=== PATIENT | female | born 1995 | race Caucasian/White ===

== ENCOUNTER → 2018-04-28 16:54 | Observation (INO) ==
[2018-04-28 14:17] LABS: Bilirubin,Urine Negative (Negative); Blood,Urine Negative (Negative); Clarity,Urine Clear (Clear); Color,Urine Yellow (Yellow); Glucose,Urine (UA) Normal (Normal); Ketones,Urine 80 mg/dL (Negative); Leukocyte Esterase,Urine Small (Negative); Nitrite,Urine Negative (Negative); Protein,Urine Negative (Neg-Trace); Specific Gravity,Urine 1.019 (1.010-1.025); Urobilinogen,Urine Normal (Normal)
[2018-04-28 14:22] LABS: Bacteria,Urine None Seen per hpf (None-Few); Hyaline Casts,Urine None Seen per lpf (None-Few); Squamous Epithelial Cell,Urine Many per lpf (None-Few); WBC,Urine 0-3 per hpf (0-3)
[2018-04-28 14:25] LABS: Amphetamine Screen,Urine Negative ng/mL (Cutoff=1000); Barbiturate Screen,Urine Negative ng/mL (Cutoff=200); Benzodiazepines Screen,Urine Negative ng/mL (Cutoff=200); Cannabinoid Screen,Urine Negative ng/mL (Cutoff = 50); Cocaine Screen,Urine Negative ng/mL (Cutoff= 300); Opiate Screen,Urine Negative ng/mL (Cutoff=300); Phencyclidine Screen,Urine Negative ng/mL (Cutoff=25)
--- NOTE | 2018-04-28 14:53 | OB/GYN Progress Note ---
Date of Encounter: 04/28/18 Time of Encounter: 14:47 - Assessment and Plan (1) 30 weeks gestation of Current Visit: Yes Status: Acute admitted for observation (2) uterine contractions in third trimester, antepartum Current Visit: Yes Status: Acute PO hydration (3) Vaginal bleeding Current Visit: Yes Status: Acute Speculum exam SVE Dr. Arguello updated on patients status and POC Subjective - Subjective Principal diagnosis: contractions and vaginal spotting Interval history: Patient is a 22 y/o presents to labor and delivery with complaints of cramping for over a week and today noticed some spotting when she wiped after using the restroom. Patient denies any LOF. Patient reports +FM. Patient states that Dr. Duarte checked her for the same complaint on 04/23/18 and she was not dilated. Patient denies any urinary symptoms, vaginal discharge, itching or burning. Patient states she was recently treated for a UTI and did finish her coarse of treatment. Antepartum ROS: vaginal bleeding (per HPI), movement normal, contractions (irregular), no loss of fluid Objective - Vital Signs Vital Signs: Intake and Output 04/27/18 04/28/18 04/28/18 23:59 07:59 15:59 Other: Weight 85.684 kg Patient Weight 04/28/18 23:59 Weight 85.684 kg - Exam FHR: auscultation normal, category 1 FHR comments: 145 bpm moderate variability +15x15 accels no decels noted. Cat. 1 tracing No contractions noted Auscultation: bilateral: normal Abdomen: Present: normal appearance, soft, gravid Cervical dilation: 1 Cervix effacement: 25 station: -3 Comments: Speculum exam: scant amount of red mucus discharge with moderate amount of beige colored discharge. No active bleeding noted. Vaginosis panel collected. - Labs Labs: Abnormal lab results Urine Ketones 80 mg/dL (Negative) H 04/28/18 14:05 Ur Leukocyte Esterase Small (Negative) H 04/28/18 14:05 Urine Microscopic RBC 3-5 per hpf (0-3) H 04/28/18 14:05 Ur Squamous Epith Cells Many per lpf (None-Few) H 04/28/18 14:05 Ur Culture Indicated? NO. (NO) A 04/28/18 14:05
[2018-04-28 15:10] LABS: Basophils % 0.2 %; Eosinophils # 0.1 K/mcL (0.0-0.6); Eosinophils % 0.7 %; Hematocrit 33.5 % (35.3-44.9); Hemoglobin 10.5 g/dL (11.5-15.4); Immature Granulocytes % 0.6 % (0-4); Lymphocytes # 1.4 K/mcL (0.6-4.6); Mean Corpuscular HGB Conc 31.3 g/dL (31.6-35.5); Mean Corpuscular Hemoglobin 25.4 pg (28.0-33.3); Mean Corpuscular Volume 80.9 fL (83.0-100.0); Mean Platelet Volume 10.6 fL (9.4-12.4); Monocytes # 0.6 K/mcL (0.0-1.3); Monocytes % 6.4 %; Platelet Count 207 K/mcL (140-400); Red Blood Count 4.14 M/mcL (3.82-4.97); Red Cell Distribution Width 13.5 % (11.5-14.5); Segmented Neutrophils % 77.1 %
[2018-04-28 15:21] LABS: Protein/Creatinine Ratio,Urine 0.14 mg/mg (0.00-0.20)
[2018-04-28 15:29] LABS: Trichomonas DNA Not Detected (Not Detect)
[2018-04-28 15:30] LABS: Candida DNA Not Detected (Not Detect); Gardnerella DNA Not Detected (Not Detect)
[2018-04-28 15:32] LABS: Alanine Aminotransferase 8 Units/L (7-52); Aspartate Amino Transferase 11 Units/L (13-39); BUN/Creatinine Ratio 10 (6-26); Blood Urea Nitrogen 5 mg/dL (6-20); Lactate Dehydrogenase 95 Units/L (140-271); Uric Acid 3.2 mg/dL (2.3-7.6); eGFR For Non-African Americans > 60 (> 60)
[~2018-04-28 16:54] MED LIST: Betamethasone Acet/SodPhos 6 MG/ML MDV IM SCH
--- NOTE | 2018-04-28 16:55 | Discharge Summary ---
Date of Encounter: 04/28/18 Time of Encounter: 16:54 - Discharge Diagnosis (1) 30 weeks gestation of Priority: Primary Status: Acute (2) uterine contractions in third trimester, antepartum Priority: Secondary Status: Acute Comments: No cervical change Discussed patient with Dr. Arguello will discharge home to follow up with Dr. Duarte tomorrow (3) Vaginal bleeding Priority: Secondary Status: Acute - Discharge Medications Home Medications: Ondansetron ODT [Zofran ODT] 4 mg SL Q6HR PRN #8 tab.rapdis 06/09/17 [Rx] Tablet 04/28/18 [History] Allergies/Adverse Reactions: Allergy/AdvReac Type Severity Reaction Status Date / Time Oxycodone AdvReac See Verified 07/19/16 11:07 Comments Data Procedures and tests throughout hospitalization: Laboratory Tests 04/28/18 04/28/18 04/28/18 14:05 14:05 14:05 WBC RBC Hgb Hct MCV MCH MCHC RDW Plt Count MPV Immature Gran % Seg Neutrophils % Lymphocytes % Monocytes % Eosinophils % Basophils % Neutrophils # Lymphocytes # Monocytes # Eosinophils # Basophils # BUN Creatinine Est GFR ( Amer) Est GFR (Non-Af Amer) BUN/Creatinine Ratio Uric Acid AST ALT Lactate Dehydrogenase Urine Color Yellow Urine Clarity Clear Urine pH 6.0 Ur Specific [place] 1.019 Urine Protein Negative Urine Glucose (UA) Normal Urine Ketones 80 H Urine Blood Negative Urine Nitrite Negative Urine Bilirubin Negative Urine Urobilinogen Normal Ur Leukocyte Esterase Small H Urine Microscopic RBC 3-5 H Urine Microscopic WBC 0-3 Ur Squamous Epith Cells Many H Urine Bacteria None Seen Hyaline Casts None Seen Ur Culture Indicated? NO. A Urine Creatinine 155 Protein/Creatinin Ratio 0.14 Urine Total Protein 21 H Urine Opiates Screen Negative Ur Barbiturates Screen Negative Ur Phencyclidine Scrn Negative Ur Amphetamines Screen Negative U Benzodiazepines Scrn Negative Urine Cocaine Screen Negative U Marijuana (THC) Screen Negative Ur Drug Screen Interp See Below Treasure species DNA Gardnerella DNA Probe Trichomonas DNA Probe 04/28/18 04/28/18 04/28/18 14:39 14:55 14:55 WBC 9.1 RBC 4.14 Hgb 10.5 L Hct 33.5 L MCV 80.9 L MCH 25.4 L MCHC 31.3 L RDW 13.5 Plt Count 207 MPV 10.6 Immature Gran % 0.6 Seg Neutrophils % 77.1 Lymphocytes % 15.0 Monocytes % 6.4 Eosinophils % 0.7 Basophils % 0.2 Neutrophils # 7.0 Lymphocytes # 1.4 Monocytes # 0.6 Eosinophils # 0.1 Basophils # 0.0 BUN 5 L Creatinine 0.50 L Est GFR ( Amer) > 60 Est GFR (Non-Af Amer) > 60 BUN/Creatinine Ratio 10 Uric Acid 3.2 AST 11 L ALT 8 Lactate Dehydrogenase 95 L Urine Color Urine Clarity Urine pH Ur Specific [place] Urine Protein Urine Glucose (UA) Urine Ketones Urine Blood Urine Nitrite Urine Bilirubin Urine Urobilinogen Ur Leukocyte Esterase Urine Microscopic RBC Urine Microscopic WBC Ur Squamous Epith Cells Urine Bacteria Hyaline Casts Ur Culture Indicated? Urine Creatinine Protein/Creatinin Ratio Urine Total Protein Urine Opiates Screen Ur Barbiturates Screen Ur Phencyclidine Scrn Ur Amphetamines Screen U Benzodiazepines Scrn Urine Cocaine Screen U Marijuana (THC) Screen Ur Drug Screen Interp Treasure species DNA Not Detected Gardnerella DNA Probe Not Detected Trichomonas DNA Probe Not Detected Labs on day of discharge: Labs from last 24 hours 04/28/18 04/28/18 04/28/18 14:55 14:55 14:39 WBC 9.1 RBC 4.14 Hgb 10.5 L Hct 33.5 L MCV 80.9 L MCH 25.4 L MCHC 31.3 L RDW 13.5 Plt Count 207 MPV 10.6 Immature Gran % 0.6 Seg Neutrophils % 77.1 Lymphocytes % 15.0 Monocytes % 6.4 Eosinophils % 0.7 Basophils % 0.2 Neutrophils # 7.0 Lymphocytes # 1.4 Monocytes # 0.6 Eosinophils # 0.1 Basophils # 0.0 BUN 5 L Creatinine 0.50 L Est GFR ( Amer) > 60 Est GFR (Non-Af Amer) > 60 BUN/Creatinine Ratio 10 Uric Acid 3.2 AST 11 L ALT 8 Lactate Dehydrogenase 95 L Urine Color Urine Clarity Urine pH Ur Specific [place] Urine Protein Urine Glucose (UA) Urine Ketones Urine Blood Urine Nitrite Urine Bilirubin Urine Urobilinogen Ur Leukocyte Esterase Urine Microscopic RBC Urine Microscopic WBC Ur Squamous Epith Cells Urine Bacteria Hyaline Casts Ur Culture Indicated? Urine Creatinine Protein/Creatinin Ratio Urine Total Protein Urine Opiates Screen Ur Barbiturates Screen Ur Phencyclidine Scrn Ur Amphetamines Screen U Benzodiazepines Scrn Urine Cocaine Screen U Marijuana (THC) Screen Ur Drug Screen Interp Treasure species DNA Not Detected Gardnerella DNA Probe Not Detected Trichomonas DNA Probe Not Detected 04/28/18 04/28/18 04/28/18 14:05 14:05 14:05 WBC RBC Hgb Hct MCV MCH MCHC RDW Plt Count MPV Immature Gran % Seg Neutrophils % Lymphocytes % Monocytes % Eosinophils % Basophils % Neutrophils # Lymphocytes # Monocytes # Eosinophils # Basophils # BUN Creatinine Est GFR ( Amer) Est GFR (Non-Af Amer) BUN/Creatinine Ratio Uric Acid AST ALT Lactate Dehydrogenase Urine Color Yellow Urine Clarity Clear Urine pH 6.0 Ur Specific [place] 1.019 Urine Protein Negative Urine Glucose (UA) Normal Urine Ketones 80 H Urine Blood Negative Urine Nitrite Negative Urine Bilirubin Negative Urine Urobilinogen Normal Ur Leukocyte Esterase Small H Urine Microscopic RBC 3-5 H Urine Microscopic WBC 0-3 Ur Squamous Epith Cells Many H Urine Bacteria None Seen Hyaline Casts None Seen Ur Culture Indicated? NO. A Urine Creatinine 155 Protein/Creatinin Ratio 0.14 Urine Total Protein 21 H Urine Opiates Screen Negative Ur Barbiturates Screen Negative Ur Phencyclidine Scrn Negative Ur Amphetamines Screen Negative U Benzodiazepines Scrn Negative Urine Cocaine Screen Negative U Marijuana (THC) Screen Negative Ur Drug Screen Interp See Below Treasure species DNA Gardnerella DNA Probe Trichomonas DNA Probe Date of admission: 04/28/18 13:56 Discharging clinician: Aimee Pfeiffer Anticipated date of discharge: 04/28/18 - Patient Status Disposition: Home, Self-Care Condition: Good Functional capacity at discharge: independent ambulation - Discharge Instructions Follow Up With: Adiel Duarte MD [Partnered Physician] - - Diet and Activity Activity: increase activity as tolerated Diet: regular diet Hospital Course ACCOUNT SUPPORT ASSOCIATE Time Attestation: Total time spent providing and/or coordinating discharge services: Time Spent: Less than 30 minutes Exam - Constitutional General appearance IM: A&O X 3, pleasant, answers questions appropriately - Other Additional findings: SVE no cervical change Patient to follow up with Dr. Duarte tomorrow for second betamethasone injection - VTE Reasons for not Prescribing Prophylaxis: Treatment not Indicated - Low risk for VTE
== END | disposition home or self-care (01) ==
LOC: 1NENULAB
PROVIDERS: ADMIT Student in an Organized Health Care Education/Training Program; ATTEND Student in an Organized Health Care Education/Training Program

== ENCOUNTER 2018-06-28 08:00 | Inpatient (IN) ==
--- NOTE | 2018-06-28 10:26 | OB/GYN History & Physical ---
Date of Encounter: 06/28/18 Time of Encounter: 10:23 Assessment and Plan (1) 39 weeks gestation of Current visit: Yes Status: Acute Induction of labor History of Present Illness Chief complaint: induction HPI: Ms. Canseco is a 22 year old female who presents to labor and delivery for induction of labor. On examination her cervix was found to be 2 cm, 70% effaced and -1 station. [place] induction was started today. Pitocin will be given. Patient having no complaints of any kind. Baby is doing well and very active. She has allergies to oxycodone.. Current medications include vitamins. She has no chronic medical conditions. Surgical history includes shoulder surgery 2, laparoscopy, tonsillectomy. Socially she denies tobacco, alcohol, illicit drug use. Obstetric history significant for one term vaginal delivery. Family history significant for paternal grandfather with breast cancer; paternal grandmother with bone, lung and liver cancer. This patient had no history of STDs or pelvic infections. She has no history of abnormal Pap smears. Socially she denies tobacco, alcohol, illicit drug use. Past Med Surg Social Fam HX - Past Medical History Medical history: hypertension, other Additional medical history: heart murmur Psychiatric history: no psych history - Past Surgical History Additional surgical history: two shoulder surgerys, laprascopic surgery for endometriosis, and tonsil removal - Social History Smoking Status: Never smoker Smokeless Tobacco Status: No Alcohol use: none Drug use: none - Family History Mother Adopted: No Living Status: Still Living Hx Family Cardiac Disorders: No Hx Family Respiratory Disorders: No Hx Family Cancer: No Hx Family GI Disorders: No Hx Family Endocrine Disorder: No Hx Family Neuromuscular Disorders: No Hx Family Neurologic Disorders: No Hx Family HEENT Disorders: No Hx Family Autoimmune Disorders: No Obstetrical History - Pregnancies : 3 Para: 1 Term: 1 Ab's: 1 Livin Medications and Allergies Ondansetron ODT [Zofran ODT] 4 mg SL Q6HR PRN #8 tab.rapdis 06/09/17 [Rx] Tablet 04/28/18 [History] Amoxicillin 875 mg PO BID #20 tablet 06/07/18 [Rx] Fluconazole [Diflucan] 150 mg PO DAILY #1 tab 06/07/18 [Rx] Allergy/AdvReac Type Severity Reaction Status Date / Time oxycodone [Oxycodone] AdvReac See Verified 06/07/18 12:44 Comments Review of System OB All systems PM: reviewed and no additional remarkable complaints except as stated Exam - Constitutional Constitutional: well developed, well nourished, no acute distress, average body habitus - HEENT HEENT: EOMI, PERRL - Neck Neck exam: full ROM, normal inspection - Lungs Respiratory exam: CTAB - Cardiovascular Cardiovascular exam: RRR - Abdomen Abdomen: Present: bowel sounds normal, gravid, non tender - Extremities Extremities exam: full ROM - Vagina Vagina: Present: normal moisture - Cervix Dilation: 2 Effacement: 70 Station: -2 - Uterus Uterus exam: Present: normal size Results All other labs normal.
[2018-06-28] MEDS ORDERED: Ondansetron 4 MG/2 ML VIAL IVP PRN (10:31)
[2018-06-28] MEDS ORDERED: Metoclopramide 10 MG/2 ML VIAL IVP PRN (10:31)
[2018-06-28] MEDS ORDERED: Famotidine 20 MG/2 ML VIAL IVP PRN (10:31)
[2018-06-28] MEDS ORDERED: *HR* Nalbuphine 10 MG/ML AMPUL IVP PRN (10:31)
[2018-06-28 11:07] LABS: Basophils % 0.2 %; Eosinophils % 0.4 %; Hematocrit 35.8 % (35.3-44.9); Hemoglobin 11.2 g/dL (11.5-15.4); Immature Granulocytes % 0.5 % (0-4); Lymphocytes # 1.5 K/mcL (0.6-4.6); Lymphocytes % 18.8 %; Mean Corpuscular HGB Conc 31.3 g/dL (31.6-35.5); Mean Corpuscular Hemoglobin 23.8 pg (28.0-33.3); Mean Corpuscular Volume 76.2 fL (83.0-100.0); Monocytes # 0.5 K/mcL (0.0-1.3); Monocytes % 6.5 %; Platelet Count 223 K/mcL (140-400); Red Cell Distribution Width 15.1 % (11.5-14.5); Segmented Neutrophils % 73.6 %
[2018-06-28] MEDS: Ringers Solution, Lactated 1,000 ML IVC SCH ×2 (11:07→14:07)
[2018-06-28 11:15] LABS: Amphetamine Screen,Urine Negative ng/mL (Cutoff=1000); Barbiturate Screen,Urine Negative ng/mL (Cutoff=200); Benzodiazepines Screen,Urine Negative ng/mL (Cutoff=200); Cannabinoid Screen,Urine Negative ng/mL (Cutoff = 50); Cocaine Screen,Urine Negative ng/mL (Cutoff= 300); Opiate Screen,Urine Negative ng/mL (Cutoff=300); Phencyclidine Screen,Urine Negative ng/mL (Cutoff=25)
[2018-06-28] MEDS: Oxytocin 20 units/ LR 1000 mL 20 UNIT/1,000 ML BAG IVC SCH ×2 (11:21→17:49)
--- NOTE | 2018-06-28 13:24 | Anesthesia Evaluation PreOp ---
Date of Encounter: 06/28/18 Time of Encounter: 13:17 - Past History Planned Operation: DEL, INDUCTION Cardiac History: Denies any Significant Hx Pulmonary History: Denies Any Significant HX VOICE COACH History: Denies Any Significant HX Other Medical History: Denies Any Significant HX Anesthesia History: No Prior Anesthetic Complications, Past Anesthesia (multiple, no family hx, previous epidural ok but was "out of it") Alcohol Use: none Drug use: none Medications and Allergies Pnv62/FA/Om3/Dha/Epa/Fish Oil [[facility] Gummy Vitamins] 1 each PO 06/28/18 [History] Allergy/AdvReac Type Severity Reaction Status Date / Time oxycodone [Oxycodone] AdvReac See Verified 06/07/18 12:44 Comments Anesthesia Results - Labs 06/28/18 10:20 Anesthesia Exam - HEENT Pupil (Motor): Pupils equal Mallampati: I Teeth: Normal Oral Opening: Greater than 3 - VOICE COACH LOC: Oriented VOICE COACH Motor: Normal RUE, Normal LUE, Normal RLE, Normal LLE, Normal Face VOICE COACH Sensory: Normal: RUE, LUE, RLE, LLE, Face - Cardiac Rhythm: Regular Murmur: None - Pulmonary Breath Sounds: bilateral Clear Respiratory Effort: Symmetrical Anesthesia Assess/Plan ASA Score: 2 Level of consciousness: Cooperative, Oriented Anesthetic Plan: General, Spinal, Epidural Monitoring Plan: Standard Monitors Recovery Plan: PACU
[2018-06-28] MEDS ORDERED: Epidural Premix (fent/bupiv) 110 ML EP ONE (13:27)
[2018-06-28] MEDS ORDERED: Lidocaine -MPF 2% 5 ML VIAL ONE (13:28)
[2018-06-28] MEDS ORDERED: Epidural Premix (fent/bupiv) 110 ML EP SCH (13:30)
--- NOTE | 2018-06-28 14:20 | Anesthesia Procedures ---
Addendum entered and electronically signed by Analia Fuentes CRNA 06/28/18 15:56: Delivery Date: 06/28/18 Delivery Time: 14:53 Addendum entered and electronically signed by Analia Fuentes CRNA 06/28/18 14:56: needle depth 8cm catheter depth 9cm at skin Original Note: Date of Encounter: 06/28/18 Time of Encounter: 13:45 Procedures: Anesthesia - Epidural/Spinal Patient ID/Chart reviewed: Yes Patient examined: Yes OB Eval: : 3 OB Eval: Hx Para: 1 OB Eval: Dilated at (cm): 5 OB Eval: Contractions: Non-stressed pattern Consent Obtained: Yes Supplemental Oxygen: None/Room Air Site Prep: Aseptic Technique, Sterile prep and drape, Povidone-Iodine 1% Patient position: upright Amount of Local Anesthetic used: 3 Touhy Needle Gauge: 18 Test Dose Result: Negative Loading Dose Administered: Thru Catheter Infusion Rate (mls/hr): [address]: Tegaderm, Tape Interspace Used: L4-L5 Loss of Resistance (MARLINE): Yes Blood: No CSF: No Paresthesia: No Vitals + FHT's: stable see nursing record
--- NOTE | 2018-06-28 15:06 | OB/GYN Procedure Note ---
Delivery - Delivery Date: 06/28/18 Provider: Adiel Duarte Intrapartum events: none Delivery induction: oxytocin, quevedo Delivery augmentation: pitocin Delivery monitor: external FHT, external uterine Anesthesia: epidural Quantitated Blood Loss: 200 - (s) Infant A Delivery Date: 06/28/18 Infant Delivery Time: 14:53 Presentation: vertex Position: OA Route of delivery: Gender: Female Viability: Viable Pounds: 6 Ounces: 15 Weight Gram: 3.145 kg at 1 minute: 9 at 5 mins: 9 Shoulder Dystocia: not encountered Placenta: spontaneous Cord: 3 umbilical vessels - Repair Episiotomy: none Laceration Description: None - Complications Delivery complications: none - Disposition Mom disposition: stable in LDR disposition: stable in LDR - Comments Comments: This patient progressed rapidly to complete and pushing and had a spontaneous vaginal delivery of a female over an intact perineum. Infant was in the perineum easily and with 1 push. The rest the infant was then delivered with 1 push. cried immediately upon delivery. Cord was cut to cut after 1 minute. Cord bloods obtained. The placenta was not delivered spontaneously and intact. There are no cervical, vaginal, periurethral or perineal lacerations noted. Patient delivered a female weight was 6 lbs. 15 oz. 3145 g. Apgars were 9 at 1 minute and 9 at 5 minutes. Estimated blood loss 200 mL.
[2018-06-28] MEDS ORDERED: Measles/Mumps/Rubella Vacc 0.5 ML VIAL SQ PRN (19:36)
[2018-06-28] MEDS ORDERED: Acetaminophen 325 MG TABLET PO PRN (19:36)
[2018-06-28] MEDS ORDERED: Oxytocin 20 units/ LR 1000 mL 20 UNIT/1,000 ML BAG IVC SCH (19:45)
[2018-06-28] MEDS ORDERED: Ibuprofen 600 MG TABLET PO PRN (22:46)
[2018-06-29 07:22] LABS: Basophils % 0.3 %; Eosinophils # 0.1 K/mcL (0.0-0.6); Eosinophils % 1.4 %; Hematocrit 32.9 % (35.3-44.9); Hemoglobin 10.1 g/dL (11.5-15.4); Immature Granulocytes % 0.8 % (0-4); Immature Platelets 4.7 % (1.1-6.1); Lymphocytes # 1.7 K/mcL (0.6-4.6); Lymphocytes % 19.9 %; Mean Corpuscular HGB Conc 30.7 g/dL (31.6-35.5); Mean Corpuscular Hemoglobin 23.8 pg (28.0-33.3); Mean Corpuscular Volume 77.6 fL (83.0-100.0); Mean Platelet Volume 11.3 fL (9.4-12.4); Monocytes # 0.8 K/mcL (0.0-1.3); Monocytes % 8.6 %; Platelet Count 175 K/mcL (140-400); Red Blood Count 4.24 M/mcL (3.82-4.97); Red Cell Distribution Width 15.1 % (11.5-14.5)
[2018-06-29 08:19] VITALS: BP 125/64
--- NOTE | 2018-06-29 08:27 | Discharge Summary ---
Date of Encounter: 06/29/18 Time of Encounter: 08:24 - Discharge Diagnosis (1) Vaginal delivery Priority: Primary Status: Acute Comments: Patient meeting day one milestones. Pain well-controlled with prescribed medications. Voiding without difficulty, tolerating regular diet. No bowel movement yet. Patient declines contraception prior to discharge. Anticipate discharge this afternoon - Discharge Medications Prescriptions: Ibuprofen [Motrin] 600 mg PO Q6H PRN #60 tablet PRN Reason: Moderate Pain Home Medications: Pnv62/FA/Om3/Dha/Epa/Fish Oil [[facility] Gummy Vitamins] 1 each PO 06/28/18 [History] Acetaminophen [Tylenol] 650 mg PO Q6HR PRN tablet 06/29/18 [Rx] Docusate [Colace] 100 mg PO BID capsule 06/29/18 [Rx] Ibuprofen [Motrin] 600 mg PO Q6H PRN #60 tablet 06/29/18 [Rx] Allergies/Adverse Reactions: Allergy/AdvReac Type Severity Reaction Status Date / Time oxycodone [Oxycodone] AdvReac See Verified 06/07/18 12:44 Comments Data Procedures and tests throughout hospitalization: Laboratory Tests 06/28/18 06/28/18 06/29/18 10:20 10:20 06:42 WBC 8.2 8.7 RBC 4.70 4.24 Hgb 11.2 L 10.1 L Hct 35.8 32.9 L MCV 76.2 L 77.6 L MCH 23.8 L 23.8 L MCHC 31.3 L 30.7 L RDW 15.1 H 15.1 H Plt Count 223 175 MPV 11.0 11.3 Immature Gran % 0.5 0.8 Seg Neutrophils % 73.6 69.0 Lymphocytes % 18.8 19.9 Monocytes % 6.5 8.6 Eosinophils % 0.4 1.4 Basophils % 0.2 0.3 Neutrophils # 6.0 6.0 Lymphocytes # 1.5 1.7 Monocytes # 0.5 0.8 Eosinophils # 0.0 0.1 Basophils # 0.0 0.0 Immature Plt Fraction 4.7 Urine Opiates Screen Negative Ur Barbiturates Screen Negative Ur Phencyclidine Scrn Negative Ur Amphetamines Screen Negative U Benzodiazepines Scrn Negative Urine Cocaine Screen Negative U Marijuana (THC) Screen Negative Ur Drug Screen Interp See Below Labs on day of discharge: Labs from last 24 hours 06/29/18 06/28/18 06/28/18 06:42 10:20 10:20 WBC 8.7 8.2 RBC 4.24 4.70 Hgb 10.1 L 11.2 L Hct 32.9 L 35.8 MCV 77.6 L 76.2 L MCH 23.8 L 23.8 L MCHC 30.7 L 31.3 L RDW 15.1 H 15.1 H Plt Count 175 223 MPV 11.3 11.0 Immature Gran % 0.8 0.5 Seg Neutrophils % 69.0 73.6 Lymphocytes % 19.9 18.8 Monocytes % 8.6 6.5 Eosinophils % 1.4 0.4 Basophils % 0.3 0.2 Neutrophils # 6.0 6.0 Lymphocytes # 1.7 1.5 Monocytes # 0.8 0.5 Eosinophils # 0.1 0.0 Basophils # 0.0 0.0 Immature Plt Fraction 4.7 Urine Opiates Screen Negative Ur Barbiturates Screen Negative Ur Phencyclidine Scrn Negative Ur Amphetamines Screen Negative U Benzodiazepines Scrn Negative Urine Cocaine Screen Negative U Marijuana (THC) Screen Negative Ur Drug Screen Interp See Below Date of admission: 06/28/18 08:17 Primary care physician: Moses Thompson MD Consults: 06/28/18 19:36 Consult to Conical Mixer [CONS] Routine Comment: Vaginal delivery, consult needed Discharging clinician: Amber De Luna Anticipated date of discharge: 06/29/18 - Patient Status Disposition: Home, Self-Care Condition: Good Functional capacity at discharge: independent ambulation Overall status at discharge: patient is progressing back to baseline - Discharge Instructions Follow Up With: Moses Thompson MD [Primary Care Provider] - - Diet and Activity Activity: increase activity as tolerated Diet: regular diet Hospital Course Reason for admission: induction of labor, IUP at term Delivery: Episiotomy: none Laceration: none Other procedures: none complications: none Discharge diagnosis: IUP at term delivered baby: female Hospital course: Delivery Date: 06/28/18 Provider: Adiel Duarte Intrapartum events: none Delivery induction: oxytocin, quevedo Delivery augmentation: pitocin Delivery monitor: external FHT, external uterine Anesthesia: epidural Quantitated Blood Loss: 200 - (s) A Delivery Date: 06/28/18 Infant Delivery Time: 14:53 Presentation: vertex Position: OA Route of delivery: Gender: Female Viability: Viable Pounds: 6 Ounces: 15 Weight Gram: 3.145 kg at 1 minute: 9 at 5 mins: 9 Shoulder Dystocia: not encountered Placenta: spontaneous Cord: 3 umbilical vessels - Repair Episiotomy: none Laceration Description: None - Complications Delivery complications: none - Disposition Mom disposition: stable in LDR [place] disposition: stable in LDR - Comments Comments: This patient progressed rapidly to complete and pushing and had a spontaneous vaginal delivery of a female infant over an intact perineum. was in the perineum easily and with 1 push. The rest the was then delivered with 1 push. cried immediately upon delivery. Cord was cut to cut after 1 minute. Cord bloods obtained. The placenta was not delivered spontaneously and intact. There are no cervical, vaginal, periurethral or perineal lacerations noted. Patient delivered a female infant weight was 6 lbs. 15 oz. 3145 g. Apgars were 9 at 1 minute and 9 at 5 minutes. Estimated blood loss 200 mL. Time Attestation: Total time spent providing and/or coordinating discharge services: Time Spent: Less than 30 minutes Exam - Constitutional Vitals: Temp Pulse Resp BP Pulse Ox 98.1 F 52 14 125/64 100 06/29/18 08:18 06/29/18 08:18 06/29/18 08:18 06/29/18 08:18 06/29/18 08:18 General appearance IM: A&O X 3, pleasant, no acute distress, answers questions appropriately - Respiratory Respiratory exam: Present: CTAB - Cardiovascular Cardiovascular exam IM: Present: RRR, +S1, +S2 - GI/Abdominal GI/Abdominal exam IM: normal bowel sounds, soft - Rectal Rectal exam: deferred - Uterine Tone: Firm Uterus Position: 1 Finger Below Umbilicus - Extremities Exam Extremities exam IM: Present: full ROM, normal capillary refill, normal inspection - Neurological Exam Neurological exam: alert, normal gait, oriented X3
[2018-06-29] MEDS ORDERED: Prenatal Vit/FA 1 EACH TABLET PO SCH (09:00)
== END 2018-06-29 16:16 | disposition home or self-care (01) | DRG 560 ==
LOC: 1NENULAB 08:17 → 1NENUOBS 18:53
PROVIDERS: ADMIT Obstetrics & Gynecology; ATTEND Obstetrics & Gynecology